=== PATIENT | male | born 1990 | race Caucasian/White ===

== ENCOUNTER 2022-01-01 09:22 | Emergency (ER) | payer OTHER | END 2022-01-01 12:10 | disposition home or self-care (01) | LOC: ERS 09:22 | DX: S82.491A Other fracture of shaft of right fibula, initial encounter for closed fracture (principal); S93.04XA Dislocation of right ankle joint, initial encounter; X50.9XXA Other and unspecified overexertion or strenuous movements or postures, initial encounter | CPT/HCPCS: 27781 ==

== ENCOUNTER 2022-01-04 10:49 | Outpatient (CLI) | payer OTHER | END 2022-01-04 10:50 | disposition home or self-care (01) | LOC: LABBT 10:49 | PROVIDERS: ATTEND Orthopaedic Surgery | DX: S93.439A Sprain of tibiofibular ligament of unspecified ankle, initial encounter (principal); Z20.822 Contact with and (suspected) exposure to COVID-19 | CPT/HCPCS: 87811 ==